=== PATIENT | male | born 1975 | race Caucasian/White ===

== ENCOUNTER 2023-05-23 18:30 | Emergency (ER) | payer BC, MEDICAID ==
[~2023-05-23] VITALS: Ht 180.3 cm; Wt 78.4 kg
[~2023-05-23 18:30] MED LIST: HYDR-3965 PO; OXYC-658 PO; VAL2T PO
[2023-05-23 18:32] VITALS: TEMP 98.3
[2023-05-23] MEDS ORDERED: PRED20TA PO (20:43)
[2023-05-23] MEDS ORDERED: CYCL-1 PO (20:43)
[2023-05-23] MEDS ORDERED: ketorolac trometh. 30mg/ml inj. IM ONE (21:05)
[2023-05-23] MEDS ORDERED: diazepam inj 5 MG/ML inj. IM ONE (21:05)
[2023-05-23 21:23] VITALS: BP 128/78; PULSE 88; O2SAT 99
[2023-05-23 22:07] VITALS: RESP 16
--- NOTE | 2023-05-23 22:23 | NUR ---
I have reviewed and agree with all interventions, assessments performed and documented by Marilin ASHTON
== END 2023-05-23 22:09 | disposition home or self-care (01) ==
LOC: ER 18:32
DX: S39.012A Strain of muscle, fascia and tendon of lower back, initial encounter (principal); Z79.899 Other long term (current) drug therapy; X58.XXXA Exposure to other specified factors, initial encounter; Y93.89 Activity, other specified; Y92.89 Other specified places as the place of occurrence of the external cause; Y99.8 Other external cause status
CPT/HCPCS: 96372; 99284; J1885; J3360